=== PATIENT | female | born 1990 | race Caucasian/White ===

== ENCOUNTER 2016-07-23 06:25 | Inpatient (IN) | payer MEDICAID ==
[~2016-07-23] VITALS: Ht 157.5 cm; Wt 76.0 kg
[~2016-07-23 06:25] MED LIST: PRENAT PO
[2016-07-23 06:39] VITALS: BP 121/72; PULSE 76; RESP 18
[2016-07-23] MEDS ORDERED: AMO500 PO (06:42)
--- NOTE | 2016-07-23 07:30 | TRIAGE ---
OB Triage Datetime Report Generated by CPN: 07/23/2016 07:30 Datetime: 07/23/2016 07:26 Monitor Mode: External Monitor Mode: External US Datetime: 07/23/2016 07:00 Labor Evaluation Frequency: 2-5 Monitor Mode: External Duration (sec)2399: 50-100 Quality: Mild Pattern: Normal: <= 5 Contractions in 10 Minutes Resting Tone [place]: Relaxed Heart Rate FHR Baseline Rate: 130 Monitor Mode: External US Variability: Moderate 6-25 bpm Accelerations: 15X15 Decelerations: None Category: Category I Datetime: 07/23/2016 06:52 Vaginal Exam Dilatation (cms): 1.0 Effacement (%): 50 Station: -2 Exam By: [email or web address] Vaginal Bleeding: None Cervix, Consistency: Moderate Cervix, Position: Midposition Presentation 'A': Cephalic Datetime: 07/23/2016 06:39 Time of Arrival: 07/23/2016 06:25 EGA: 39.0 Arrived By: Wheelchair Arrived From: Home Chief Complaint: CONTRACTIONS, SPOTTING WHEN WIPING Movement: Present Contractions: Irregular Time Contractions Began: 07/23/2016 05:00 Rupture of Membranes: Denies Vaginal Bleeding: Small Vaginal Discharge: Denies Recent Sexual Intercouse: Denies Abdominal Trauma: Not Applicable Patient Complaints: Contractions Time Provider Notified: 07/23/2016 07:07 Provider Notified: DELSHAD Initial Plan: CEFM, SVE Datetime: 07/23/2016 06:37 Stage of : OB Triage Temperature Route: Oral Pain Assessment Pain Scale: 7 Pain Presence: Intermittent Pain Type: Cramping Pain Location: Abdomen Datetime: 07/23/2016 06:35 Assessment Type: Triage Maternal Assessment Level of Consciousness: Fully Conscious DTR's/Clonus: DTRs 2+; No Clonus Headache: Denies Blurred Vision: No Respiratory Effort: Unlabored; Regular Rhythm; Equal Expansion Breath Sounds, Left: Clear and Equal Breath Sounds, Right: Clear and Equal Nausea/Vomiting: Denies RUQ Epigastric Pain: Denies Lower Extremities Edema: None Degree: None Upper Extremities Edema: None Degree: None Facial Edema: None Fall Risk Assessment History of Falling: (0) No Secondary Diagnosis: (0) No Ambulatory Aid: (0) Bedrest/Nurse Assist IV Therapy: (0) No Gait: (0) Normal/Bedrest/Immobile Mental Status: (0) Oriented to Own Ability Fall Score: 0 Fall Risk Score Definition: No Risk: No action required Datetime: 06/30/2016 13:35 Labor Evaluation Frequency: NO UC'S NOTED AT THIS TIME Monitor Mode: External Quality: Mild Resting Tone [place]: Relaxed Contraction Comments: PT DENIES FEELING UC'S Heart Rate FHR Baseline Rate: 150 Monitor Mode: External US Variability: Moderate 6-25 bpm Accelerations: 15X15 Decelerations: None Category: Category I Comments: NST REACTIVE FOR GESTATIONAL AGE Datetime: 06/30/2016 13:00 Maternal Assessment Level of Consciousness: Fully Conscious DTR's/Clonus: DTRs 2+; No Clonus Headache: Denies Blurred Vision: No Respiratory Effort: Unlabored; Regular Rhythm; Equal Expansion Breath Sounds, Left: Clear and Equal Breath Sounds, Right: Clear and Equal Nausea/Vomiting: Denies RUQ Epigastric Pain: Denies Facial Edema: None Fall Risk Assessment History of Falling: (0) No Secondary Diagnosis: (0) No Ambulatory Aid: (0) Bedrest/Nurse Assist IV Therapy: (0) No Gait: (0) Normal/Bedrest/Immobile Mental Status: (0) Oriented to Own Ability Fall Score: 0 Fall Risk Score Definition: No Risk: No action required Datetime: 06/30/2016 12:56 Stage of : OB Triage Assessment Type: Triage Maternal Assessment Level of Consciousness: Fully Conscious DTR's/Clonus: DTRs 2+; No Clonus Headache: Denies Blurred Vision: No Respiratory Effort: Unlabored; Regular Rhythm; Equal Expansion Breath Sounds, Left: Clear and Equal Breath Sounds, Right: Clear and Equal Nausea/Vomiting: Denies RUQ Epigastric Pain: Denies Lower Extremities Edema: None Degree: None Upper Extremities Edema: None Degree: None Facial Edema: None Temperature Route: Axillary Fall Risk Assessment History of Falling: (0) No Secondary Diagnosis: (0) No Ambulatory Aid: (0) Bedrest/Nurse Assist IV Therapy: (0) No Gait: (0) Normal/Bedrest/Immobile Mental Status: (0) Oriented to Own Ability Fall Score: 0 Fall Risk Score Definition: No Risk: No action required Datetime: 06/30/2016 12:54 Time of Arrival: 06/30/2016 12:00 EGA: 35.5 Arrived By: Ambulatory Arrived From: Home Chief Complaint: DECREASED MOVEMENT AND LEAKING SINCE 11 AM Movement: Decreased Contractions: Denies/Absent Rupture of Membranes: Unsure Vaginal Bleeding: None Vaginal Discharge: Denies Recent Sexual Intercouse: Denies Abdominal Trauma: Not Applicable Patient Complaints: None Time Provider Notified: 06/30/2016 14:00 Provider Notified: DR. ROSS Initial Plan: BPP AND EDD
[2016-07-23] MEDS ORDERED: LACTATED RINGER'S 1,000 ML IV PRN (07:48)
[2016-07-23] MEDS ORDERED: AMPICILLIN 2 GM/NS (PMX) 100 ML IV ONE (08:00)
[2016-07-23] MEDS ORDERED: BUTORPHANOL 2 MG INJ IV PRN ×2 (08:00→23:00)
[2016-07-23] MEDS ORDERED: MISOPROSTOL 200 MCG TAB PR PRN (08:00)
[2016-07-23] MEDS ORDERED: IBUPROFEN 600 MG TAB PO PRN (08:00)
[2016-07-23] MEDS ORDERED: OXYTOCIN 30 UNITS/LR 500 ML IV PRN (08:00)
[2016-07-23] MEDS ORDERED: LIDOCAINE 1% (MPF) 30 ML INJ INJ PRN (08:00)
[2016-07-23] MEDS ORDERED: OXYTOCIN 30 UNITS/LR 500 ML IV SCH ×3 (08:00→13:00)
[2016-07-23] MEDS ORDERED: CARBOPROST 250 MCG INJ IM PRN (08:00)
[2016-07-23] MEDS ORDERED: METHYLERGONOVINE 0.2 MG INJ IM PRN (08:00)
[2016-07-23] MEDS: LACTATED RINGER'S 1,000 ML IV SCH ×3 (08:14→23:38)
[2016-07-23 08:18] LABS: BASOPHILS % 0.3 % (0.0-2.0); EOSINOPHILS # 0.1 10^3/ul (0.0-0.5); EOSINOPHILS % 0.4 % (0.0-7.0); HEMATOCRIT 36.4 % (37.0-47.0); HEMOGLOBIN 12.3 g/dl (12.0-16.0); LYMPHOCYTES % 16.1 % (15.0-51.0); MEAN CORPUSCULAR HEMOGLOBIN 29.3 pg (29.0-33.0); MEAN CORPUSCULAR HGB CONC 33.7 g/dl (32.0-37.0); MEAN PLATELET VOLUME 8.9 fl (7.4-10.4); MONOCYTE # 0.9 10^3/ul (0.3-0.9); MONOCYTES % 6.8 % (0.0-11.0); NEUTROPHIL # 9.6 10^3/ul (1.6-7.5); NEUTROPHILS % 76.4 % (39.0-77.0); PLATELET COUNT 249 10^3/UL (140-440); RED BLOOD COUNT 4.18 10^6/ul (4.20-5.40); RED CELL DISTRIBUTION WIDTH 13.5 % (11.5-14.5); UNCORRECTED WBC 12.5 10^3/ul (4.8-10.8); WHITE BLOOD COUNT 12.5 10^3/ul (4.8-10.8)
--- NOTE | 2016-07-23 08:26 | RADRPT ---
PROCEDURE: US biophysical profile. CLINICAL INDICATION: well-being. TECHNIQUE: Multiple sonographic images of the uterus were obtained. The images were revi ewed on a PACS workstation. COMPARISON: No prior studies are available for comparison. FINDINGS: There is a single live intrauterine gestation. heart rate is 152 beats per minute. The position is cephalic. The placenta is anterior, grade II. The EDD is 17.6 cm. Breathing Movement: 2 Gross Body Movement: 2 Tone: 2 Qualitative Amniotic Fluid Volume: 2 TOTAL: 8 IMPRESSION: 1. Single viable intrauterine gestation. 2. Biophysical profile = 02/10. 3. EDD = 17.6 cm. RPTAT: UU .Divya Rodriguez MD, MD Date Time Electronically viewed and signed by .Divya Rodriguez MD, MD on 07/23/2016 08:26 .N/
--- NOTE | 2016-07-23 08:29 | RADRPT ---
PROCEDURE: US OB. CLINICAL INDICATION: Spotting. TECHNIQUE: Multiple sonographic images of the pelvis were obtained. Transabdominal imaging only w as performed. The images were reviewed on a PACS workstation. COMPARISON: 06/30/2016. FINDINGS: There is a single viable intrauterine gestation. Cardiac activity is present with 156 beats per min andreafski. There is a vertex presentation. Measurements were made in order to determine age. The results are as follows: BPD = 8.93 cm HC = 32.15 cm AC = 36.07 cm FL = 7.01 cm Estimated gestational age of approximately 37 weeks and 2 days. The estimated date of delivery is 08/11/2016. The EFW = 3446 g, 51%. The placenta is anterior, grade II. There is no evidence for an abruption or placenta previa. There is a normal amount of amniotic fluid with an EDD = 17.6. There are no adnexal masses. IMPRESSION: 1. Single viable intrauterine gestation of approximately 37 weeks and 2 days. 2. The estimated date of delivery is 08/11/2016. RPTAT: UU .Divya Rodriguez MD, MD Date Time Electronically viewed and signed by .Divya Rodriguez MD, MD on 07/23/2016 08:29 .N/
[2016-07-23 08:39] LABS: INR 0.96; PROTIME 12.8 Sec (12.2-14.2)
[2016-07-23 08:40] LABS: PARTIAL THROMBOPLASTIN TIME 26.6 Sec (25.0-35.0)
[2016-07-23 08:41] LABS: CONDITION 1
[2016-07-23] MEDS: AMPICILLIN 1 GM/NS (PMX) 50 ML IV SCH ×4 (11:17→23:38)
--- NOTE | 2016-07-23 18:51 | HP ---
Date/Time of Note Date/Time of Note DATE: 07/23/16 TIME: 18:49 OB - History Hx of Present Chief Complaint: contractions Last Menstrual Period: Oct 24, 2015 Estimated Due Date: Jul 30, 2016 : 1 Para: 0 Spontaneous : 0 Therapeutic : 0 Care: Good Care Ultrasounds: Normal mid trimester US Obstetrical Complications: None Medical Complications: None Past Family/Social History * Past Medical, Surgical, Family and Obstetric Histories reviewed from chart. GBS Status: Positive OB Admission Exam Vital Signs Vital Signs Vital Signs Date Time Temp Pulse Resp B/P Pulse Ox O2 Delivery O2 Flow Rate FiO2 07/23/16 06:39 97.9 76 18 121/72 Room Air Physical Exam HEENT: WNL Heart: Rhythm Normal Lungs: Clear Abdomen: WNL Extremities: Normal Cervical Dilatation: 1cm Effacement: 75% Station: -1 Membranes: Intact Heart Rate: 140's Accelerations: Accelerations Present Decelerations: No Decelerations Varibility: Moderate Contractions on Admission: < 5 Minutes Apart Last 72 hours Lab Results CBC & BMP 07/23/16 07:55 OB Assessment/Plan Reason for admission: active labor, group B positive strep Plan: Expectant Management SULEMA BANDA MD Jul 23, 2016 18:51
[2016-07-24] MEDS: LACTATED RINGER'S 1,000 ML IV SCH ×2 (02:09→12:11)
[2016-07-24] MEDS: AMPICILLIN 1 GM/NS (PMX) 50 ML IV SCH ×4 (03:00→14:42)
[2016-07-24] MEDS ORDERED: LACTATED RINGER'S 1,000 ML IV ONE (04:24)
[2016-07-24] MEDS ORDERED: NALOXONE (0.4 MG/ML) INJ IV PRN (04:30)
[2016-07-24] MEDS ORDERED: CITRIC ACID/NA CITRATE 30 ML CUP PO ONE (04:30)
[2016-07-24] MEDS ORDERED: PROCHLORPERAZINE 10 MG INJ IV PRN (04:30)
[2016-07-24] MEDS ORDERED: ONDANSETRON 4 MG INJ IV PRN (04:30)
[2016-07-24] MEDS ORDERED: ONDANSETRON 4 MG INJ IV ONE (04:30)
[2016-07-24] MEDS ORDERED: KETOROLAC 30 MG INJ IV PRN (04:30)
[2016-07-24] MEDS ORDERED: DIPHENHYDRAMINE 50 MG INJ IV PRN (04:30)
[2016-07-24] MEDS ORDERED: HYDROmorphONE 1 MG/ML SYG IV PRN ×2 (04:30)
[2016-07-24] MEDS ORDERED: OXYTOCIN 30 UNITS/LR 500 ML IV SCH (05:00)
[2016-07-24] MEDS: FENTAnyl 2MCG/ML-ROPIV 0.2% 100 ML BAG EPI SCH ×2 (05:49→13:19)
--- NOTE | 2016-07-24 15:11 | LDN ---
Date/Time of Note Date/Time of Note DATE: 07/24/16 TIME: 15:04 Delivery Summary over intact perineum Placenta Delivered: Spontaneously Meconium: none Perineum intact?: No (Please specify) Perineal laceration repair: First degree and vaginal repaired with 3-0 Vicryl Anesthesia type: Epidural Estimated blood loss: 300 Sponge & Needle done & correct: Yes All needle counts correct: Yes Any foreign bodies felt in the: No (Please specify) Problems: Infant Delivery Information Sex Infant Sex: male Apgars 1 Minute: 9 5 Minute: 9 Suctioning Nose & mouth suctioned at jerson: Yes Delee suction performed: No Umbilical Cord Umbilical cord with: 3 Vessels Cord presentations: no nuchal cord Cord Blood was obtained: Yes Mother & Baby Disposition Disposition Mom & Baby to Maternity; Good: Yes SULEMA BANDA MD Jul 24, 2016 15:10
[2016-07-24] MEDS: LACTATED RINGER'S 1,000 ML IV* SCH ×2 (18:03→23:06)
[2016-07-24] MEDS ORDERED: DIBUCAINE 1% 30 GM OINT PR PRN (18:30)
[2016-07-24] MEDS ORDERED: OXYTOCIN 30 UNITS/LR 500 ML IV PRN (18:30)
[2016-07-24] MEDS ORDERED: ACETAMINOPHEN/CODEINE #3 TAB PO PRN (18:30)
[2016-07-24] MEDS ORDERED: BENZOCAINE 20% 56 ML SPRAY TOP PRN (18:30)
[2016-07-24] MEDS ORDERED: WITCH HAZEL/GLYCERIN PAD PR PRN (18:30)
[2016-07-24] MEDS ORDERED: ACETAMINOPHEN 325 MG TAB PO PRN (18:30)
[2016-07-24] MEDS ORDERED: CARBOPROST 250 MCG INJ IM PRN (18:30)
[2016-07-24] MEDS ORDERED: MISOPROSTOL 200 MCG TAB PR PRN (18:30)
[2016-07-24] MEDS ORDERED: METHYLERGONOVINE 0.2 MG INJ IM PRN (18:30)
[2016-07-24 20:16] VITALS: BP 125/73; PULSE 84; RESP 20
[2016-07-24] MEDS: SENNA/DOCUSATE NA (8.6MG/50MG) TAB PO SCH (20:46)
[2016-07-24 21:00] VITALS: BP 124/68; PULSE 88; RESP 16
[2016-07-25 00:03] VITALS: BP 125/66; PULSE 86; RESP 18
[2016-07-25 04:00] VITALS: BP 123/60; PULSE 80; RESP 20
[2016-07-25] MEDS: IBUPROFEN 600 MG TAB PO SCH ×4 (06:39→17:21)
[2016-07-25 07:27] LABS: BASOPHILS % 0.1 % (0.0-2.0); EOSINOPHILS % 0.1 % (0.0-7.0); HEMATOCRIT 30.2 % (37.0-47.0); HEMOGLOBIN 10.3 g/dl (12.0-16.0); LYMPHOCYTES # 2.2 10^3/ul (0.8-2.9); LYMPHOCYTES % 10.3 % (15.0-51.0); MEAN CORPUSCULAR HEMOGLOBIN 29.6 pg (29.0-33.0); MEAN CORPUSCULAR HGB CONC 34.1 g/dl (32.0-37.0); MEAN CORPUSCULAR VOLUME 86.8 fl (82.0-101.0); MEAN PLATELET VOLUME 8.9 fl (7.4-10.4); MONOCYTE # 1.9 10^3/ul (0.3-0.9); MONOCYTES % 8.9 % (0.0-11.0); NEUTROPHIL # 17.1 10^3/ul (1.6-7.5); NEUTROPHILS % 80.6 % (39.0-77.0); PLATELET COUNT 200 10^3/UL (140-440); RED BLOOD COUNT 3.48 10^6/ul (4.20-5.40); RED CELL DISTRIBUTION WIDTH 13.9 % (11.5-14.5); UNCORRECTED WBC 21.2 10^3/ul (4.8-10.8); WHITE BLOOD COUNT 21.2 10^3/ul (4.8-10.8)
[2016-07-25 07:33] LABS: CONDITION 1; LH ANALYZER COMMENTS 1; SUSPECT 1
[2016-07-25 08:20] VITALS: BP 119/59; PULSE 84; RESP 18
[2016-07-25] MEDS: SENNA/DOCUSATE NA (8.6MG/50MG) TAB PO SCH ×2 (10:51→21:05)
[2016-07-25 12:12] VITALS: BP 110/70; PULSE 80; RESP 16
[2016-07-25 15:42] VITALS: BP 113/54; PULSE 76; RESP 17
--- NOTE | 2016-07-25 17:02 | CONS ---
Date/Time of Note Date/Time of Note DATE: 07/25/16 TIME: 16:52 Assessment/Plan Assessment/Plan Chief Complaint/Hosp Course 26 yo F with mild PDPH 1. Continue with fluids, hydration, ceffeine via coke or po caffeine 2. If headache does not resolve, can offer epidural blood patch. Discussed plan with patient and RN. Problems: Consultation Date/Type/Reason Admit Date/Time Jul 23, 2016 at 07:17 Date of Consultation: Jul 25, 2016 Reason for Consultation PDPH Referring Provider: SULEMA BANDA MD Hx of Present Illness 26 yo F GBS+ s/p s/p epidural 07/24/16, Delivery 14:47 c/o PDPH, consulted for mangement. Pt c/o 5-6/10 neck pain that is positional, has some light and sound sensitivity, tolerating po, no nausea, emesis x1. Epidural site c/d/i, no erythema, no tenderness to palpation. Pt has been drinking coke , with improvement in symptoms, neck pain resolves on lying flat. Pt was standing on examination, and did not look to be in major distress from pain. Neurologic: headache Past Medical History no PMH, GBS+ Family History Significant Family History: no pertinent family hx Social History Alcohol Use: none Smoking Status: Never smoker Drug Use: none Exam/Review of Systems Vital Signs Vitals Vital Signs Date Time Temp Pulse Resp B/P Pulse Ox O2 Delivery O2 Flow Rate FiO2 07/25/16 15:42 98.0 76 17 113/54 Room Air 07/25/16 06:00 98 21 Intake and Output 07/24/16 07/24/16 07/25/16 15:00 23:00 07:00 Intake Total 875 ml 1615 ml 875 ml Output Total 1400 ml 1600 ml Balance -525 ml 15 ml 875 ml Exam Constitutional: alert, oriented, well developed Psych: no complaints Head: atraumatic, normocephalic Eyes: EOMI, PERRL, nl conjunctiva ENMT: mucosa pink and moist, nl external ears & nose, nl lips & teeth Neck: supple Respiratory: clear to auscultation Cardiovascular: nl pulses, regular rate and rhythm Gastrointestinal: soft Musculoskeletal: nl extremities to inspection, nl gait and stance, spine non- tender Extremities: normal pulses Neurological: MOLY[employer]ATOR II-XII intact, nl mental status, nl speech, nl strength Skin: nl turgor Results Result Diagram: 07/25/16 0645 Results 24 hrs Laboratory Tests Test 07/25/16 06:45 Basophils # 0.0 Basophils % 0.1 Eosinophils # 0.0 Eosinophils % 0.1 Hematocrit 30.2 L Hemoglobin 10.3 L Lymphocytes # 2.2 Lymphocytes % 10.3 L Mean Corpuscular Hemoglobin 29.6 Mean Corpuscular Hemoglobin Concent 34.1 Mean Corpuscular Volume 86.8 Mean Platelet Volume 8.9 Monocytes # 1.9 H Monocytes % 8.9 Neutrophils # 17.1 H Neutrophils % 80.6 H Nucleated Red Blood Cells # 0.0 Nucleated Red Blood Cells % 0.0 Platelet Count 200 Red Blood Count 3.48 L Red Cell Distribution Width 13.9 White Blood Count 21.2 #H Medications Medications Current Medications Lactated Ringer's (Lr) 1,000 ml @ 125 mls/hr Q8H IV* Last administered on 07/24 23:06; Admin Dose 125 MLS/HR; Start 07/24/16 at 18:03 Ibuprofen (Motrin) 600 mg Q6 PO Last administered on 07/25/16 12:12; Admin Dose 600 MG; Start 07/25/16 at 00:00 Acetaminophen (Tylenol Tab) 650 mg Q4H PRN PO PAIN LEVEL 1-5; Start 07/24/16 at 18:30 Acetaminophen/ Codeine Phosphate (Tylenol No.3) 1 tab Q4H PRN PO PAIN LEVEL 1- 5 Last administered on 07/24/16 20:47; Admin Dose 1 TAB; Start 07/24/16 at 18: 30 Senna/Docusate Sodium (Senokot-S) 1 tab BID PO Last administered on 07/25/16 10:51; Admin Dose 1 TAB; Start 07/24/16 at 21:00 Diphtheria/ Tetanus/Acell Pertussis 0.5 ml 0.5 ml ONCE ONCE IM* ; Start at 09:00; Stop 07/26/16 at 09:01 Oxytocin/Lactated Ringer's 500 ml @ 0 mls/hr ONCE PRN IV For Hemorrhage Management Last administered on 07/24/16 19:12; Admin Dose 125 MLS/HR; Start 1 /19/17 at 18:30 Methylergonovine Maleate (Methergine) 0.2 mg ONCE PRN IM VAGINAL BLEEDING; Start 07/24/16 at 18:30 Carboprost Tromethamine (Hemabate) 250 mcg ONCE PRN IM VAGINAL BLEEDING; Start 07/24/16 at 18:30 Misoprostol (Cytotec) 1,000 mcg ONCE PRN LA VAGINAL BLEEDING; Start 07/24/16 at 18:30 Procedures Procedures s/p epidural 07/24/16 JUAN SANTIAGO MD Jul 25, 2016 17:02
[2016-07-25 20:00] VITALS: BP 115/52; PULSE 78; RESP 18
--- NOTE | 2016-07-25 21:22 | PN ---
Date/Time of Note Date/Time of Note DATE: 07/25/16 TIME: 21:18 OB Subjective Subjective Subjective Patient c/o neck pain and slight headache. OB Objective Objective Objective Afebrile VSS Heart: Rhythm Normal Lungs: Clear Abdomen: WNL OB Assessment/Plan Reason for admission: other Other Assessment: PPD# 1 Spinal headache Stable Plan: Other Other plan: Patient was evaluated by Anesthesia and offered blood patch. Patient is thinking about it. SULEMA BANDA MD Jul 25, 2016 21:21
[2016-07-26] VITALS (7 sets, daily range): BP systolic 110–135; BP diastolic 61–79; PULSE 70–85; RESP 18–19
[2016-07-26] MEDS: IBUPROFEN 600 MG TAB PO SCH ×4 (00:31→17:39)
[2016-07-26 07:15] LABS: BASOPHILS % 0.3 % (0.0-2.0); EOSINOPHILS # 0.1 10^3/ul (0.0-0.5); EOSINOPHILS % 0.4 % (0.0-7.0); HEMATOCRIT 32.2 % (37.0-47.0); HEMOGLOBIN 10.9 g/dl (12.0-16.0); LYMPHOCYTES % 17.4 % (15.0-51.0); MEAN CORPUSCULAR HEMOGLOBIN 29.7 pg (29.0-33.0); MEAN CORPUSCULAR HGB CONC 33.9 g/dl (32.0-37.0); MEAN CORPUSCULAR VOLUME 87.6 fl (82.0-101.0); MEAN PLATELET VOLUME 8.7 fl (7.4-10.4); MONOCYTE # 1.3 10^3/ul (0.3-0.9); MONOCYTES % 7.5 % (0.0-11.0); NEUTROPHIL # 12.9 10^3/ul (1.6-7.5); NEUTROPHILS % 74.4 % (39.0-77.0); PLATELET COUNT 228 10^3/UL (140-440); RED BLOOD COUNT 3.67 10^6/ul (4.20-5.40); RED CELL DISTRIBUTION WIDTH 13.9 % (11.5-14.5); UNCORRECTED WBC 17.4 10^3/ul (4.8-10.8); WHITE BLOOD COUNT 17.4 10^3/ul (4.8-10.8)
[2016-07-26 07:17] LABS: CONDITION 1
[2016-07-26] MEDS: SENNA/DOCUSATE NA (8.6MG/50MG) TAB PO SCH (09:00)
[2016-07-26] MEDS ORDERED: DIPHTH/TET/ACEL PERTUSS (ADULT) 0.5 ML VIAL IM* ONE (09:00)
--- NOTE | 2016-07-26 11:16 | CONS ---
Date/Time of Note Date/Time of Note DATE: 07/26/16 TIME: 11:11 Assessment/Plan Assessment/Plan Chief Complaint/Hosp Course 26 yo F with symptoms consistent with PDPH At this time, patient would like to move foward with epidural blood patch. All R/B/A of EBP discussed, all questions answered. Please see anesthesia record for procedure. Problems: Consultation Date/Type/Reason Admit Date/Time Jul 23, 2016 at 07:17 Initial Consult Date 07/25/16 Type of Consultation: PDPH Reason for Consultation Follow-up Referring Provider: SULEMA BANDA MD 24 HR Interval Summary Free Text/Dictation no acute distress, patient still c/o PDPH, relieved by lying down Exam/Review of Systems Vital Signs Vitals Vital Signs Date Time Temp Pulse Resp B/P Pulse Ox O2 Delivery O2 Flow Rate FiO2 07/26/16 04:00 98.2 80 18 135/79 Room Air 07/25/16 06:00 98 21 Exam Pt still with 6/10 neck pain, continues to have tinnitus but now also has some pain behind the eyes. relieved by lying down, pain returns after 2 mins in upright position. However patient is functional, able to feed, dress herself, take care of baby, go to the bathroom. tolerating po's, no n/v. Results Result Diagram: 07/26/16 0624 Results 24 hrs Laboratory Tests Test 07/26/16 06:24 Basophils # 0.0 Basophils % 0.3 Eosinophils # 0.1 Eosinophils % 0.4 Hematocrit 32.2 L Hemoglobin 10.9 L Lymphocytes # 3.0 H Lymphocytes % 17.4 Mean Corpuscular Hemoglobin 29.7 Mean Corpuscular Hemoglobin Concent 33.9 Mean Corpuscular Volume 87.6 Mean Platelet Volume 8.7 Monocytes # 1.3 H Monocytes % 7.5 Neutrophils # 12.9 H Neutrophils % 74.4 Nucleated Red Blood Cells # 0.0 Nucleated Red Blood Cells % 0.0 Platelet Count 228 Red Blood Count 3.67 L Red Cell Distribution Width 13.9 White Blood Count 17.4 H Medications Medications Current Medications Ibuprofen (Motrin) 600 mg Q6 PO Last administered on 07/26/16t 06:53; Admin Dose 600 MG; Start 07/25/16 at 00:00 Acetaminophen (Tylenol Tab) 650 mg Q4H PRN PO PAIN LEVEL 1-5; Start 07/24/16 at 18:30 Acetaminophen/ Codeine Phosphate (Tylenol No.3) 1 tab Q4H PRN PO PAIN LEVEL 1- 5 Last administered on 07/24/16 20:47; Admin Dose 1 TAB; Start 07/24/16 at 18: 30 Senna/Docusate Sodium 1 tab 1 tab BID PO Last administered on 07/25/16 21:05; Admin Dose 1 TAB; Start 07/24/16 at 21:00 Oxytocin/Lactated Ringer's 500 ml @ 0 mls/hr ONCE PRN IV For Hemorrhage Management Last administered on 07/24/16 19:12; Admin Dose 125 MLS/HR; Start at 18:30 Methylergonovine Maleate (Methergine) 0.2 mg ONCE PRN IM VAGINAL BLEEDING; Start 07/24/16 at 18:30 Carboprost Tromethamine (Hemabate) 250 mcg ONCE PRN IM VAGINAL BLEEDING; Start 07/24/16 at 18:30 Misoprostol (Cytotec) 1,000 mcg ONCE PRN [place] VAGINAL BLEEDING; Start 07/24/16 at 18:30 JUAN SANTIAGO MD Jul 26, 2016 11:16
--- NOTE | 2016-07-26 17:23 | DS ---
Date/Time of Note Date/Time of Note DATE: 07/26/16 TIME: 17:22 Obstetrical Discharge Record Final Diagnosis Final Diagnosis: Term delivered Vaginal Delivery Obstetrical Delivery: Spontaneous, Laceration, Repaired Condition on Discharge Physical Assessment Voiding: Yes Bowel Movement: Yes Breast: Soft, non-tender Fundus: Firm Calf Tenderness: No Patient Condition: Stable SULEMA BANDA MD Jul 26, 2016 17:23
== END 2016-07-26 19:04 | disposition home or self-care (01) | DRG 775 ==
LOC: L-D 06:25 → OBT 06:25 → L-D 07:17 → PP1 07-24 18:56
PROVIDERS: ADMIT Obstetrics & Gynecology; ATTEND Obstetrics & Gynecology
PROC: 10E0XZZ Delivery of Products of Conception, External Approach (ICD-10-PCS; principal; 2016-07-24)
PROC: 0HQ9XZZ Repair Perineum Skin, External Approach (ICD-10-PCS; 2016-07-24)
DX: O99.824 Streptococcus B carrier state complicating childbirth (principal); Z37.0 Single live birth; O70.0 First degree perineal laceration during delivery; Z3A.38 38 weeks gestation of pregnancy
CPT/HCPCS: 62319; 76815; 76818; 85025; 85610; 85730; 86592; 86900; 86901; 87340; 90715; 94760; G0463; J0290; J2210; J2405; J2590; J3010; J7120